=== PATIENT | female | born 1985 | race Caucasian/White ===

== ENCOUNTER 2023-03-13 20:50 | Emergency (ER) | payer BC ==
[2023-03-13 21:22] VITALS: BP 152/100; PULSE 95; RESP 16; TEMP 98.3; BMI 28.4
[2023-03-13] MEDS ORDERED: TETRACAINE 0.5% OPHTH SOLN 2 ML BOTTLE ONE (21:55)
[2023-03-13] MEDS ORDERED: FLUORESCEIN NA 1 EA STRIP ONE (21:56)
[2023-03-13] MEDS ORDERED: VANCOMYCIN 1 GM in D5W (PRE-DOCKED) 1,000 MG/250 ML (RESTRICTED TO ID ONLY IVPB ONE (22:07)
[2023-03-13] MEDS ORDERED: VANCOMYCIN 1,000 MG VIAL (RESTRICTED TO ID ONLY) ONE (22:21)
[2023-03-13] MEDS ORDERED: KETOROLAC TROMETHAMINE 30 MG/1 ML VIAL IVPUSH ONE (23:03)
[2023-03-13] MEDS ORDERED: TOBRA 0.3%/DEXAMETH 0.1% OPHTHALMIC SUSP 2.5 ML BTL ONE (23:05)
[2023-03-13] MEDS ORDERED: KETOROLAC TROMETHAMINE 30 MG/1 ML VIAL ONE (23:26)
== END 2023-03-14 00:29 | disposition home or self-care (01) ==
LOC: FER 20:50
PROC: 3E033NZ Introduction of Analgesics, Hypnotics, Sedatives into Peripheral Vein, Percutaneous Approach (ICD-10-PCS; principal; 2023-03-13)
PROC: 3E033GC Introduction of Other Therapeutic Substance into Peripheral Vein, Percutaneous Approach (ICD-10-PCS; 2023-03-13)
DX: H57.12 Ocular pain, left eye (principal); H02.844 Edema of left upper eyelid; H02.845 Edema of left lower eyelid; H20.00 Unspecified acute and subacute iridocyclitis
CPT/HCPCS: 99284-25